=== PATIENT | male | born 1955 | race Caucasian/White ===

== ENCOUNTER → 2024-03-23 06:16 | Outpatient (REF) | payer MEDICARE, OTHER, SELFPAY ==
[2024-03-23 10:26] LABS: PSA, Total - Diagnostic 4.96 ng/ml (0.0-4.0)
== END ==
LOC: HWLAB 06:16
PROVIDERS: ATTENDING PHYSICIAN Specialist; FAMILY PHYSICIAN Family Medicine Adult Medicine
DX: N40.1 Benign prostatic hyperplasia with lower urinary tract symptoms (principal)
CPT/HCPCS: 36415; 84153